=== PATIENT | male | born 1965 | race Caucasian/White ===

== ENCOUNTER 2017-03-14 12:02 | Emergency (ER) | payer OTHER ==
[~2017-03-14] VITALS: Ht 175.3 cm; Wt 90.1 kg
[~2017-03-14 12:02] MED LIST: HYDR1TAB69 PO; LOSA25TA21 PO; ONDANSETRON8ODT SL/PO; TAM4 PO
[2017-03-14 12:09] VITALS: BP 149/96; PULSE 70; RESP 15; O2SAT 97
[2017-03-14] MEDS ORDERED: 0.9% Sodium Chloride 1,000 ML IV ONE (12:54)
[2017-03-14] MEDS ORDERED: HYDROmorphone 0.5 mg/0.5 mL iSecure Syringe IVPUSH PRN (12:55)
[2017-03-14] MEDS ORDERED: Ondansetron 2 mg/mL 2 mL Inj IVPUSH ONE (12:55)
[2017-03-14 13:27] LABS: BASOPHILS % (AUTO) 0.3 % (0-3); EOSINOPHILS % (AUTO) 0.9 % (0-5); Mean Corpuscular Hemoglobin 29.2 pg (27.0-35.0); Mean Corpuscular Volume 81.1 fL (81-100); NEUTROPHILS % (AUTO) 61.2 % (40-74); Platelet Count 262 bil/L (150-400)
[2017-03-14 13:40] LABS: INR 0.99 ratio
[2017-03-14 13:51] LABS: Magnesium 1.8 mg/dL (1.6-2.6)
[2017-03-14] MEDS ORDERED: Potassium Chloride 20 mEq/15 mL 15mL Oral Soln PO ONE (14:40)
--- NOTE | 2017-03-14 14:46 | ED.REPORT ---
HPI-General Illness Date of Service Mar 14, 2017 ED Provider: Jay Martinez MD Pt is a 52 year old male with a hx of chronic back pain, HTN and kidney stones presenting to the ED complaining of 3/10 back pain onset 1 week ago progressively worsening since then. He reports that last week he did some heavy lifting at work, but the pain did not start immediately afterward. The pain is so severe he did not go to work today. This pain feels similar to pain he had 8 years ago due to a herniated disc. Last night, the pain was very sharp and is worse with movement. Denies nausea, vomiting, diarrhea, constipation, bowel or bladder incontinence, decreased urination, fever, abdominal pain, or radiation to the legs. Nursing Notes Stated Complaint: BACK PAIN Chief Complaint: Back Pain or Injury Nursing Notes Reviewed: Yes Allergies: Coded Allergies: No Known Allergies (Unverified , 03/14/17) Scheduled Hydrocod/APAP-Expunged, Do Not Renew! (VICODIN-Expunged Drug, Do Not Renew) 1 Tab Tab 1 TAB PO PRN Ondansetron ODT 8 MGTab (Zofran ODT 8 MG Tab) 8 Mg Tab.rapdis 8 MG SL/PO Q6HP 8 MG Tamsulosin-Expunged Drug, Do Not Renew! (Flomax-Expunged Drug, Do Not Renew!) 0.4 Mg Capsule 0.4 MG PO DAILY Miscellaneous Medications Losartan-Expunged Drug, Do Not Renew! (Losartan-Expunged Drug, Do Not Renew!) 25 Mg Tablet 0 PO General Time Seen by MD: 12:54 Chief Complaint Back pain Hx Obtained From: Patient Arrived By: Walk-in Sudden in Onset?: No Onset Occurred: 1 week ago Symptom Duration: Since onset Location: : Back Quality: Painful Radiation: : Does not radiate Severity: Current: Pain level 3 out of 10 Severity: Maximum: Severe Recent Healthcare: No recent doctor visit, No recent hospitalization Similar Sx Previous: Yes Past Medical History Past Medical History Hx of herniated disc, HTN, kidney stones Past Surgical History Lithotripsy for kidney stones Family History Denies any pertinent family history. Smoking History Unknown if Ever Smoker Ambulatory Status Independent Review of Systems Full Review of Systems Constitutional: Denies: Fever GI: Denies: Abdominal pain, Constipation, Diarrhea, Nausea, Vomiting Male: Denies Incontinence, Denies Urination decreased Musculoskeletal: Reports: Back pain, Lumbar pain, Denies: Neck pain Neurologic: Denies: Bladder dysfunction, Bowel dysfunction Complete sys rev & neg: except as marked. Physical Exam Nursing note and vitals reviewed. Constitutional: Well-developed, well-nourished. Not diaphoretic. Head: Normocephalic and atraumatic. Mouth/Throat: Oropharynx is clear and moist. No oropharyngeal exudate. Eyes: EOM are normal. Pupils are equal, round, and reactive to light. Neck: Supple, no tracheal deviation. Cardiovascular: Normal rate, regular rhythm. Equal and intact distal pulses throughout. Pulmonary/Chest: Effort normal and breath sounds normal. No respiratory distress. Abdominal: Soft. No distension. There is no tenderness, rebound, or guarding. Bowel sounds present. Musculoskeletal: Range of motion grossly intact, moving all extremities. No edema or tenderness appreciated. Back: No significant tenderness. Mild left lower back pain, no left flank pain or midline tenderness. Neurological: AOx3. Grossly nonfocal exam. Strength and sensation intact and equal to bilateral upper and lower extremities. Skin: Warm and dry, no rashes or pallor appreciated. Psychiatric: Appropriate mood and affect. Behavior appears normal. Vital Signs Vital Signs Date Time Temp Pulse Resp B/P Pulse Ox O2 Delivery O2 Flow Rate FiO2 03/14/17 12:09 36.9 70 15 149/96 97 Room Air Initial VS: Reviewed Interpretation & Diagnostics Lab Results Interpretation Result Diagram: 03/14/17 1310 03/14/17 1310 Test 03/14/17 13:10 03/14/17 17:11 White Blood Count 8.7th/mm3 (3.8-10.1) Red Blood Count 5.51mil/mm3 (4.40-5.80) Hemoglobin 16.1g/dL (13.8-17.2) Hematocrit 44.7% (41.0-50.0) Mean Corpuscular Volume 81.1fL (81-100) Mean Corpuscular Hemoglobin 29.2pg (27.0-35.0) Mean Corpuscular Hemoglobin Concent 36.0% (32.0-37.0) Red Cell Distribution Width 12.2% (12.3-15.4) Platelet Count 262bil/L (150-400) Neutrophils (%) (Auto) 61.2% (40-74) Lymphocytes (%) (Auto) 29.4% (14-46) Monocytes (%) (Auto) 8.0% (4-12) Eosinophils (%) (Auto) 0.9% (0-5) Basophils (%) (Auto) 0.3% (0-3) Prothrombin Time 10.6sec (8.1-12.5) Prothromb Time International Ratio 0.99ratio Sodium Level 137mEq/L (134-144) Potassium Level 3.1mEq/L (3.5-5.2) Chloride Level 98mEq/L (97-108) Carbon Dioxide Level 23mmol/L (18-29) Blood Urea Nitrogen 19mg/dL (6-24) Creatinine 0.87mg/dL (0.76-1.27) Estimat Glomerular Filtration Rate 98mL/min (>59) Glucose Level 94mg/dL (60-99) Lactic Acid Level 1.2mmol/L (0.4-2.0) Calcium Level 8.9mg/dL (8.5-10.1) Magnesium Level 1.8mg/dL (1.6-2.6) Total Bilirubin 0.9mg/dL (0.0-1.2) Aspartate Amino Transf (AST/SGOT) 17U/L (0-50) Alanine Aminotransferase (ALT/SGPT) 19U/L (0-44) Alkaline Phosphatase 71U/L (25-150) Total Protein 7.7g/dL (6.4-8.4) Albumin 4.2g/dL (3.4-5.0) Lipase 16U/L (13-60) Urine Color Yellow (YELLOW) Urine Appearance Clear (CLEAR,HAZY) Urine pH 7.5 (5.0-8.0) Urine Specific [place] 1.010 (1.003-1.035) Urine Protein Negativemg/dL (NEG,TRACE) Urine Glucose (UA) Negativemg/dL (NEGATIVE) Urine Ketones Negativemg/dL (NEGATIVE) Urine Occult Blood Trace (NEGATIVE) Urine Nitrite Negative (NEGATIVE) Urine Bilirubin Negative (NEGATIVE) Urine Urobilinogen Normalmg/dL (NORMAL) Urine Leukocyte Esterase Negative (NEGATIVE) Urine RBC 0-2/hpf (0-2) Urine WBC 0-5/hpf (0-5) Urine Epithelial Cells None/hpf (NONE-MOD) Urine Crystals None seen (NONE SEEN) Urine Bacteria Few/hpf (NONE-FEW) Urine Hyaline Casts None/lpf (NONE) Urine Granular Casts None seen (NONE SEEN) Urine Waxy Casts None seen (NONE SEEN) Urine Red Blood Cell Casts None seen (NONE SEEN) Urine White Blood Cell Casts None seen (NONE SEEN) Urine Mucus None seen (None Seen) Urine Trichomonas None seen (NONE SEEN) Urine Yeast None (NONE SEEN) Urinalysis Comment None Urine Culture Reflexed Not indicated ECG Interpretation ECG Interpretation: ST elevation, probable normal early repol pattern. Time: 13:01 Interpreted by: ED physician Normal ECG Interpretation: Normal rate (64), Normal sinus rhythm CT Abd / Pelvis Interpretation IMPRESSION: 1. No evidence of aortic aneurysm or dissection. 2. No central pulmonary embolism to the level of the proximal segmental pulmonary arteries. 3. Small hypervascular lesion in the right hepatic lobe with peripheral wedge-shaped vascular shunting within the adjacent liver. The finding is nonspecific and may represent a flash filling hemangioma, but further evaluation is recommended with a liver protocol CT or MRI. 4. Bilateral nephrolithiasis. Dictated by: Neal Ferrell M.D. on 03/14/2017 at 15:21 Study type: Abdominal CT IV contrast Interpretation / Wet Read by: Interpret - Radiologist Re-Eval/Medical Decision Med Decision/Clinical Course In summary, 52-year-old male presenting to the ED from clinic for evaluation of severe left lower back pain and concern for aortic aneurysm. With respect to his back pain, the differential is broad and includes epidural abscess, cauda equina syndrome, sprain, strain, ureterolithiasis, etc. He does not have any red flag symptoms for his back pain, including no urinary retention, fever, history of IV drug abuse, bowel or bladder incontinence, or lower extremity weakness. Normal neurologic exam. In clinic, there was some concern that he may have a aortic dissection or abdominal aortic aneurysm; CT scan as per above , no evidence of either of these, however CT shows small hypervascular lesion in the right hepatic lobe with peripheral wedge-shaped vascular shunting within the adjacent liver; he is not having any pain in this area and I suspect that this is an incidental finding, however I discussed it with the patient at length and explained that he needed to discuss it with his primary doctor to determine whether or not he needed a dedicated hepatic CT versus an MRI. Laboratory studies reviewed, notable for a potassium of 3.1, otherwise CBC and CMP grossly within normal limits. Initiated potassium repletion here in the ED. Urinalysis with no evidence of infection or blood. Given a bottle, reasonable to discharge home with very careful return precautions, close PCP follow-up. Patient agreeable to the plan as stated, no further questions. Time of Eval: 18:19 Patient Status: Condition improved Re-Evaluation/Progress Note: Discussed plan for discharge. Pt understands and agrees with plan. Counseled Regarding: Diagnosis, Lab results, Need for follow-up, When/why to return to ED Discharge & Departure Primary Impression: Back pain Back pain location: low back pain Chronicity: chronic Back pain laterality : unspecified Sciatica presence: without sciatica Qualified Code: M54.5 - Low back pain Additional Impression: Nephrolithiasis Disposition: Home Discharge Condition All VS Reviewed: Yes Condition: Improved Patient Instructions: Low Back Strain (ED), Acute Low Back Pain (ED) Additional Instructions: Your CT scan was negative, it did not show any sign of fracture. I believe you have strained your back again. As we discussed, you have a small lesion in your liver. This will need an outpatient CT scan or MRI so follow up with your primary care doctor in the next 1-2 days to schedule that. Return to the ER if you lose control of your bowel or bladder, develop fever, or if you are unable to urinate when you want to or if there's anything else concerning to you. Referrals: Reji Louis MD (PCP) Tonyibalberto Attestation Portions of this note were transcribed by Melisa Call. I, Dr. Martinez personally performed the history, physical exam and medical decision-making; I reviewed and confirmed the accuracy of the information in the transcribed note. Signed by: Janelle Francois, 03/14/2017. copies to: Reji Louis MD, William B MD Mar 14, 2017 14:46 MELISA CALL Mar 14, 2017 14:55
--- NOTE | 2017-03-14 15:32 | DRSVH ---
PROCEDURE: CT ANG CHEST/ABD/PEL W/WO CIBTRAST (PNL-7502) INDICATIONS: Severe abdominal and back pain. TECHNIQUE: Precontrast 5 mm thick sections acquired from the lung apices to the iliac crests. After the adminis tration of intravenous contrast, 3 mm thick sections again acquired from the lung apices to the iliac crests. 3-dimensional maximum intensity projection (MIP) oblique sagittal and coronal reformats wer e then acquired, and/or 3-dimensional volume rendering reformats. For radiation dose reduction, the following was used: automated exposure control. COMPARISON: [facility], CT, ABD/PELVIS W&WO CON (PNL), 04/21/2012, 13:06. [facility], CT, CT KUB, 06/14/2015, 14:35. FINDINGS: Image quality: Excellent. AORTA: The aorta is normal in caliber. No evidence of intramural hematoma on noncontrast images. Po stcontrast images demonstrate no intimal flaps to suggest aortic dissection. The aortic arch demonst rates conventional branching. The visualized great vessels are normal in caliber and appear patent. There is mild atherosclerotic plaque within the left subclavian artery proximally. CHEST: Lungs and pleura: There is mild dependent atelectasis. No acute consolidation. No pleural effusions or pneumothorax. Central and peripheral airways are patent and normal in caliber. Mediastinum: Heart size is normal. No pericardial effusion. No mediastinal or hilar adenopathy by size criteria. Central pulmonary arteries are normal in size with no filling defects to the level of the proximal segmental pulmonary arteries. Esophagus is normal in caliber. No hiatal hernias. Bones and chest wall: No axillary adenopathy by size criteria. Thyroid gland demonstrates no discre te nodules. No suspicious bony lesions. No vertebral body compression fractures. ABDOMEN: Vasculature: Celiac trunk and mesenteric arteries are patent. There is an accessory left renal raphael ry. The renal arteries are patent bilaterally. The common, external, and internal iliac arteries ap pear patent. Solid organs: There is a small hypervascular lesion peripherally in the right hepatic lobe measuring up to 1.2 cm with associated wedge-shaped vascular shunting. The spleen is normal in size. There i s a calcified gallstone within the gallbladder without wall thickening or pericholecystic fluid. Charles iary system is non dilated. Pancreas enhances normally. No adrenal nodules. There is a 6 mm nonobs tructing stone within superior pole of the right kidney. Within the inferior pole of the left kidney , there is a small 5 mm nonobstructing stone. An additional punctate nonobstructing stone is also de monstrated within the lower pole of the left kidney. No hydronephrosis. There are bilateral renal c ysts. The ureters are normal in caliber. Peritoneum and bowel: No free fluid or air. Bowel loops are normal in caliber and wall thickness. Nodes and vessels: No retroperitoneal or mesenteric adenopathy by size criteria. Inferior vena cava is normal in morphology. Bones: No suspicious bony lesions. No vertebral body compression fractures. Miscellaneous: No ventral hernias. IMPRESSION: 1. No evidence of aortic aneurysm or dissection. 2. No central pulmonary embolism to the level of the proximal segmental pulmonary arteries. 3. Small hypervascular lesion in the right hepatic lobe with peripheral wedge-shaped vascular shunti ng within the adjacent liver. The finding is nonspecific and may represent a flash filling hemangiom a, but further evaluation is recommended with a liver protocol CT or MRI. 4. Bilateral nephrolithiasis. Dictated by: Neal Ferrell M.D. on 03/14/2017 at 15:21 Approved by: Neal Ferrell M.D. on 03/14/2017 at 15:30
[2017-03-14 17:22] LABS: APPEARANCE,URINE CLEAR (CLEAR,HAZY); COLOR,URINE YELLOW (YELLOW); OCCULT BLOOD,URINE TRACE (NEGATIVE); PH,URINE 7.5 (5.0-8.0); UROBILINOGEN,URINE NORMAL (NORMAL)
[2017-03-14 19:28] VITALS: BP 154/91; PULSE 66; RESP 15; O2SAT 95
== END 2017-03-14 19:29 | disposition home or self-care (01) ==
LOC: SED 12:02
DX: M54.5 Low back pain (principal); N20.0 Calculus of kidney; G89.29 Other chronic pain; I10 Essential (primary) hypertension; X50.0XXA Overexertion from strenuous movement or load, initial encounter; Y93.89 Activity, other specified; Y92.69 Other specified industrial and construction area as the place of occurrence of the external cause; Y99.0 Civilian activity done for income or pay
CPT/HCPCS: 36415; 71275; 74174; 80053; 81000; 83605; 83690; 83735; 85025; 85610; 93005; 96361; 96374; 99285; J1170; J7030; Q9967